=== PATIENT | male | born 2000 | race African-American/Black ===

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

== ENCOUNTER 2022-08-12 21:59 | Emergency (ER) | payer OTHER ==
[~2022-08-12] VITALS: Ht 172.7 cm; Wt 75.5 kg
[~2022-08-12 21:59] MED LIST: CRUTCHES MC
[2022-08-12 22:00] VITALS: TEMP 98.6
[2022-08-12 22:41] LABS: BASO # 0.1 K/mm3 (0.0-0.2); BASO % 0.6 % (0.0-2.0); EOS # 0.1 K/mm3 (0.0-0.7); EOS % 0.6 % (0.0-4.0); GRAN # 5.1 K/mm3 (1.4-6.5); GRAN % 64.3 % (42.2-75.2); HEMATOCRIT 44.7 % (36.0-47.0); HEMOGLOBIN 16.3 g/dl (12.5-16.1); LYMPH # 2.1 K/mm3 (1.2-3.4); LYMPH % 26.3 % (20.0-51.0); MEAN CELL VOLUME 86 fl (80.0-95.0); MEAN CORPUSCULAR HEMOGLOBIN 31 pg (26-32); MEAN CORPUSCULAR HGB CONC 37 g/dl (33.0-37.0); MEAN PLATELET VOLUME 11.8 fl (7.4-10.4); MONO # 0.6 K/mm3 (0.1-0.6); MONO % 7.9 % (1.7-9.3); PLATELET COUNT 161 K/mm3 (130-400); REDCELL DISTRIBUTION WIDTH-CV 11.7 % (11.5-14.5)
[2022-08-12 22:58] LABS: C-REACTIVE PROTEIN 0.04 mg/dL (0.00-0.50); CALCIUM 9.6 mg/dL (8.4-10.2); CREATININE, serum 0.95 mg/dL (0.72-1.25); POTASSIUM 3.6 mmol/L (3.5-4.5)
[2022-08-12 23:02] LABS: ERYTHROCYTE SEDIMENTATION RATE 1 mm/hr (0-15)
[2022-08-12 23:23] VITALS: BP 140/86; PULSE 59
== END 2022-08-12 23:35 | disposition short-term general hospital (02) ==
LOC: COL.ER 21:59
PROVIDERS: Emergency Medicine
DX: N50.812 Left testicular pain (principal); Z28.310 Unvaccinated for COVID-19
CPT/HCPCS: J3010